=== PATIENT | male | born 1950 | race Caucasian/White ===

== ENCOUNTER 2019-11-15 08:43 | Outpatient (RCR) | payer MEDICARE, OTHER | END 2020-02-13 | disposition home or self-care (01) | LOC: ONC 08:43 | PROVIDERS: ATTEND Radiology Radiation Oncology | DX: Z01.89 Encounter for other specified special examinations (principal) | CPT/HCPCS: 99204 ==

== ENCOUNTER 2020-03-26 13:48 | Outpatient (RCR) | payer MEDICARE, OTHER ==
[2020-05-16] MEDS ORDERED: AZIL1TAB3 PO (10:40)
[2020-05-16] MEDS ORDERED: OXYC1TAB87 PO (10:40)
[2020-05-16] MEDS ORDERED: OMG1KC PO (10:40)
[2020-05-16] MEDS ORDERED: VALS1TAB79 PO (10:40)
[2020-05-16] MEDS ORDERED: TMSL.4C PO (10:40)
[2020-05-16] MEDS ORDERED: CLON0.2T12 PO (10:40)
[2020-05-16] MEDS ORDERED: CLN.2T PO (10:40)
[2020-05-22] MEDS ORDERED: CIPR-226 PO (10:13)
[2020-05-22] MEDS ORDERED: ACET1TAB43 PO (10:13)
[2020-05-22] MEDS ORDERED: NEBI5TAB8 PO (11:16)
[2020-05-22] MEDS ORDERED: AMLO-251 PO (11:16)
[2020-05-22] MEDS ORDERED: ATOR40TA70 PO (11:16)
== END 2020-06-17 09:41 | disposition home or self-care (01) ==
LOC: ONC 13:48
PROVIDERS: ATTEND Radiology Radiation Oncology
DX: Z01.89 Encounter for other specified special examinations (principal)
CPT/HCPCS: 76873

== ENCOUNTER 2020-05-20 06:01 | Outpatient (RCR) | payer MEDICARE, OTHER ==
[~2020-05-20] VITALS: Ht 167.7 cm; Wt 87.7 kg
[~2020-05-20 06:01] MED LIST: AZIL1TAB3 PO; CLN.2T PO; CLON0.2T12 PO; OMG1KC PO; OXYC1TAB87 PO; TMSL.4C PO; VALS1TAB79 PO
[2020-05-22] MEDS ORDERED: ACET1TAB43 PO (10:13)
[2020-05-22] MEDS ORDERED: CIPR-226 PO (10:13)
[2020-05-22] MEDS ORDERED: ATOR40TA70 PO (11:16)
[2020-05-22] MEDS ORDERED: NEBI5TAB8 PO (11:16)
[2020-05-22] MEDS ORDERED: AMLO-251 PO (11:16)
== END 2020-05-21 10:48 | disposition home or self-care (01) ==
LOC: PREOP 06:01
PROVIDERS: ATTEND Radiology Radiation Oncology
DX: Z01.818 Encounter for other preprocedural examination (principal); Z20.822 Contact with and (suspected) exposure to COVID-19
CPT/HCPCS: 87635

== ENCOUNTER 2020-05-22 09:31 | Day surgery (SDC) | payer MEDICARE, OTHER ==
[~2020-05-22] VITALS: Ht 167.7 cm; Wt 87.7 kg
[2020-05-22] VITALS (10 sets, daily range): BP systolic 116–151; BP diastolic 77–91
--- NOTE | 2020-05-22 10:09 | Progress Note-Pre Operative ---
Pre-Operative Progress Note H&P Reviewed The H&P was reviewed, patient examined and no changes noted. Date Seen by Provider: May 22, 2020 Time Seen by Provider: 10: Date H&P Reviewed: May 22, 2020 Time H&P Reviewed: 10:09 Pre-Operative Diagnosis: Prostate cancer cT1c, PSA 13.1, [place] 9 (5+4) XAVIER BROWN MD May 22, 2020 10:09
[2020-05-22] MEDS ORDERED: CIPR-226 PO (10:13)
[2020-05-22] MEDS ORDERED: ACET1TAB43 PO (10:13)
--- NOTE | 2020-05-22 10:16 | Discharge Inst-Simple/Standard ---
Discharge Inst-Standard Reconcile Patient Problems Problems Reviewed?: Yes Discharge Medications New, Converted or Re-Newed RX: RX Given to Pt/Family Patient Instructions/Follow Up Plan of Care/Instructions/FU: 1)One month post implant scan at [facility] 06/17/20 at 10:00 am 2)One month post implant follow up with Dr. Hurtado 06/18/20 at 2:30 pm Activity as Tolerated: Yes Discharge Diet: No Restrictions Other Inst to Patient 06/24/20 Patient to [facility] for ferrari catheter removal by Gucci De Los Santos RN. XAVIER BROWN MD May 22, 2020 10:16
[2020-05-22] MEDS ORDERED: proPOfol 200 MG/20 ML (DIPRIVAN) VIAL IV ONE (10:17)
[2020-05-22] MEDS ORDERED: SEVOFLURANE (ULTANE) 15 ML INHAL SOLN ONE ×3 (10:17→12:11)
[2020-05-22] MEDS ORDERED: meTOprolol 5 MG/5 ML (LOPRESSOR) VIAL ONE (10:17)
[2020-05-22] MEDS ORDERED: ONDANSETRON 4 MG/2 ML (SDV) Z0FRAN ONE (10:17)
[2020-05-22] MEDS ORDERED: LIDOCAINE PF 2% 5 ML (XYLOCAINE) VIAL ONE (10:17)
[2020-05-22] MEDS ORDERED: fentaNYL INJ 100 MCG/2 ML AMP ONE (10:17)
[2020-05-22] MEDS: LACTATED RINGERS 1,000 ML IV PRN ×2 (11:04→11:47)
[2020-05-22] MEDS ORDERED: AMLO-251 PO (11:16)
[2020-05-22] MEDS ORDERED: NEBI5TAB8 PO (11:16)
[2020-05-22] MEDS ORDERED: ATOR40TA70 PO (11:16)
[2020-05-22] MEDS ORDERED: BACITRACIN OINTMENT 28 GM TUBE ONE (11:38)
[2020-05-22] MEDS ORDERED: IOPAMIDOL 61% 30 ML (ISOVUE 300) VIAL ONE (12:03)
--- NOTE | 2020-05-22 12:27 | Progress Note-Post Operative ---
Post-Operative Progess Note Surgeon (s)/Arc Trimmer (s) Surgeon XAVIER BROWN MD Arc Trimmer: Amy BALTAZAR MD Pre-Operative Diagnosis Prostate cancer cT1c, PSA 13.1, [place] 9 (5+4) Post-Operative Diagnosis Same as pre op Procedure & Operative Findings Date of Procedure 05/22/20 Procedure Performed/Findings (1) 67% Cesium 131 permanent prostate seed implant (2) Injection of biodegradable hydrogel prostate-rectal spacer utilizing the true[x] Media [place] system (3) Cystogram Prostate volume 31 cc Anesthesia Type General Estimated Blood Loss Estimated blood loss (mL): Minimal Specimens/Packing Specimens Removed None Packing: None XAVIER BROWN MD May 22, 2020 12:27
[2020-05-22] MEDS ORDERED: morphine INJ 10 MG/ML 1ML (SYR OR VIAL) IVP ONE (12:30)
[2020-05-22] MEDS ORDERED: ONDANSETRON 4 MG/2 ML (SDV) Z0FRAN IVP PRN (12:30)
--- NOTE | 2020-05-22 12:35 | Diagnostic Imaging Report ---
INDICATION: Fluoroscopy during prostate brachytherapy. DETAILS OF THE PROCEDURE: Fluoroscopy was provided for Dr. Licea for prostate brachytherapy. 18 seconds of fluoroscopic time was utilized. Two images were obtained demonstrating multiple radiation seed implants in the region of the prostate. IMPRESSION: Fluoroscopy for brachytherapy. Dictated by: Dictated on workstation # [id number]
[2020-05-22] MEDS ORDERED: APAP 300 MG/CODEINE 30 MG (TYLENOL #3) TAB PO ONE (14:00)
--- NOTE | 2020-05-22 14:03 | Anesthesia-General Post-Op ---
General Patient Condition Mental Status/LOC: Same as Preop Cardiovascular: Satisfactory Nausea/Vomiting: Absent Respiratory: Satisfactory Pain: Controlled Complications: Absent Post Op Complications Complications None Follow Up Care/Instructions Patient Instructions None needed. Anesthesia/Patient Condition Patient Condition Patient is doing well, no complaints, stable vital signs, no apparent adverse anesthesia problems. MO WEEKS DO May 22, 2020 14:03
== END 2020-05-22 15:00 | disposition home or self-care (01) ==
LOC: SDC 09:31
PROVIDERS: ATTEND Radiology Radiation Oncology
DX: C61 Malignant neoplasm of prostate (principal); I10 Essential (primary) hypertension; J45.909 Unspecified asthma, uncomplicated; E78.00 Pure hypercholesterolemia, unspecified; G91.9 Hydrocephalus, unspecified; N40.1 Benign prostatic hyperplasia with lower urinary tract symptoms; Z79.899 Other long term (current) drug therapy; Z88.8 Allergy status to other drugs, medicaments and biological substances; Z80.42 Family history of malignant neoplasm of prostate
CPT/HCPCS: 55874; 76000; 76965; 77290; 77318; 77332; 77370; 77470; 77778; 87081; C1715 ×2; C1889; C2643

== ENCOUNTER 2020-08-20 08:11 | Outpatient (RCR) | payer MEDICARE, OTHER ==
[~2020-08-20 08:11] MED LIST changes: +ACET1TAB43 PO; +AMLO-251 PO; +ATOR40TA70 PO; +CIPR-226 PO; +NEBI5TAB8 PO
== END 2020-09-15 | disposition home or self-care (01) ==
LOC: ONC 08:11
PROVIDERS: ATTEND Radiology Radiation Oncology
DX: Z51.0 Encounter for antineoplastic radiation therapy (principal); C61 Malignant neoplasm of prostate
CPT/HCPCS: 77290; 77295; 77300; 77301; 77336; 77338; 77385

== ENCOUNTER 2020-10-10 09:25 | Outpatient (RCR) | payer MEDICARE, OTHER | END 2021-01-08 | disposition home or self-care (01) | LOC: ONC 09:25 | PROVIDERS: ATTEND Radiology Radiation Oncology | DX: C61 Malignant neoplasm of prostate (principal) | CPT/HCPCS: 99213 ==